=== PATIENT | male | born 1970 | race Caucasian/White ===

== ENCOUNTER 2023-10-31 05:34 | Inpatient (IN) | payer MEDICARE, OTHER ==
[~2023-10-31] VITALS: Ht 180.3 cm; Wt 117.9 kg
[2023-10-31] VITALS (8 sets, daily range): BP systolic 130–227; BP diastolic 77–123; PULSE 95–116; RESP 20; TEMP 97.9–98.6; O2SAT 96–98
[~2023-10-31 05:34] MED LIST: VENTOLIN HFA18 GM INH; WELLBUTRIN XL300 MG PO
[2023-10-31 06:09] LABS: BASOPHILS % 0.2 % (0.0-1.0); HEMATOCRIT 49.9 % (38.2-49.6); HEMOGLOBIN 16.6 g/dL (14.0-18.0); LYMPHOCYTES # (AUTO) 1.1 (1.0-3.2); LYMPHOCYTES % 26.8 % (18.0-39.1); MEAN CORPUSCULAR HEMOGLOBIN 31.6 pg (28-32); MEAN CORPUSCULAR HGB CONC 33.3 g/dL (31-35); MEAN CORPUSCULAR VOLUME 94.9 fL (81-99); MONOCYTES # (AUTO) 0.8 (0.2-0.8); NEUTROPHILS # (AUTO) 2.2 (2.1-6.9); NEUTROPHILS % 52.8 % (38.7-80.0); PLATELET COUNT 85 x10e3/uL (140-360); RED BLOOD COUNT 5.26 x10e6/uL (4.3-5.7); RED CELL DISTRIBUTION WIDTH 14.8 % (11.7-14.4)
[2023-10-31 06:27] LABS: ALBUMIN 3.4 g/dL (3.5-5.0); ALBUMIN/GLOBULIN RATIO 1.1 (0.8-2.0); CREATININE, SERUM 0.75 mg/dL (0.72-1.25); TOTAL PROTEIN 6.4 g/dL (6.5-8.1)
[2023-10-31 06:31] LABS: INR 0.97; PROTHROMBIN TIME 13.6 seconds (11.9-14.5)
[2023-10-31 06:32] LABS: TROPONIN I 0.127 ng/mL (0-0.300)
[2023-10-31 06:32] LABS: PARTIAL THROMBOPLASTIN TIME 27.7 seconds (23.8-35.5)
[2023-10-31 06:43] LABS: BILIRUBIN,TOTAL 0.5 mg/dL (0.2-1.2)
[2023-10-31] MEDS ORDERED: ONDANSETRON HCL INJ 2MG/ML 2ML 2 MG/ML VIAL IV PRN (09:00)
[2023-10-31] MEDS ORDERED: SODIUM CHLORIDE FLUSH 10 ML SYR INJ PRN (09:00)
[2023-10-31] MEDS: ASPIRIN 81 MG CHEW TAB PO ONE ×2 (09:42→11:05)
[2023-10-31] MEDS: CHLORDIAZEPOXIDE HCL 25 MG CAP PO ONE (09:43)
[2023-10-31] MEDS: NICOTINE 21 MG/EA PATCH TOP SCH (09:43)
[2023-10-31] MEDS ORDERED: ALBUTEROL/IPRATROPIUM 3 ML NEB NEB PRN (10:15)
[2023-10-31] MEDS: METHYLPREDNISOLONE SOD SUCC 40 MG/ML VIAL 1ML IV SCH (12:14)
[2023-10-31] MEDS ORDERED: REMDESIVIR 100MG 100 MG in SODIUM CHLORIDE 0.9% 100 ML IV SCH (13:00)
[2023-10-31] MEDS: ALBUTEROL/IPRATROPIUM 3 ML NEB NEB SCH (13:00)
[2023-10-31] MEDS: DOXYCYCLINE HYCLATE TABLET 100 MG TAB PO SCH (15:44)
[2023-10-31] MEDS: REMDESIVIR 100MG 100 MG in SODIUM CHLORIDE 0.9% 100 ML IV SCH (15:44)
[2023-10-31] MEDS: HYDRALAZINE HCL 20 MG/ML VIAL IV PRN (15:44)
[2023-10-31 16:22] LABS: TROPONIN I 0.119 ng/mL (0-0.300)
[2023-10-31] MEDS: BUDESONIDE/FORMOTEROL 160/4.5MCG INHALER INH SCH (19:00)
[2023-10-31] MEDS ORDERED: SPIRONOLACTONE25 MG PO (19:26)
[2023-10-31] MEDS ORDERED: CARVEDILOL12.5 MG PO (19:26)
[2023-10-31] MEDS: CHLORDIAZEPOXIDE HCL 25 MG CAP PO PRN (20:31)
[2023-10-31] MEDS: LORAZEPAM INJ 2 MG/ML VIAL IV PRN (20:33)
[2023-11-01] VITALS (11 sets, daily range): BP systolic 83–199; BP diastolic 67–87; PULSE 85–115; RESP 17–21; TEMP 97.3–98.3; O2SAT 95–98
[2023-11-01 05:34] LABS: BASOPHILS % 0.2 % (0.0-1.0); HEMATOCRIT 55.6 % (38.2-49.6); HEMOGLOBIN 18.7 g/dL (14.0-18.0); LYMPHOCYTES % 21.8 % (18.0-39.1); MEAN CORPUSCULAR HEMOGLOBIN 31.6 pg (28-32); MEAN CORPUSCULAR HGB CONC 33.6 g/dL (31-35); MEAN CORPUSCULAR VOLUME 93.9 fL (81-99); MONOCYTES # (AUTO) 0.8 (0.2-0.8); MONOCYTES % 17.6 % (4.4-11.3); NEUTROPHILS # (AUTO) 2.8 (2.1-6.9); NEUTROPHILS % 60.2 % (38.7-80.0); PLATELET COUNT 106 x10e3/uL (140-360); RED BLOOD COUNT 5.92 x10e6/uL (4.3-5.7); RED CELL DISTRIBUTION WIDTH 14.9 % (11.7-14.4); WHITE BLOOD COUNT 4.72 x10e3/uL (4.8-10.8)
[2023-11-01 06:04] LABS: ALBUMIN 3.7 g/dL (3.5-5.0); ALBUMIN/GLOBULIN RATIO 1.1 (0.8-2.0); BILIRUBIN,TOTAL 0.7 mg/dL (0.2-1.2); CALCIUM 9.2 mg/dL (8.4-10.2); CREATININE, SERUM 0.73 mg/dL (0.72-1.25); TOTAL PROTEIN 7.1 g/dL (6.5-8.1)
[2023-11-01 06:40] LABS: TROPONIN I 0.138 ng/mL (0-0.300)
[2023-11-01] MEDS: DEXAMETHASONE SOD PHOS 10 MG/1 ML VIAL IV SCH (09:01)
[2023-11-01] MEDS: REMDESIVIR 100MG 100 MG in SODIUM CHLORIDE 0.9% 100 ML IV SCH (14:29)
[2023-11-01] MEDS: ACETAMINOPHEN 325 MG TAB PO PRN (21:30)
[2023-11-02] VITALS (12 sets, daily range): BP systolic 136–156; BP diastolic 67–79; PULSE 91–102; RESP 17–20; TEMP 97.5–98.7; O2SAT 94–100
[2023-11-02 06:06] LABS: CALCIUM 9.8 mg/dL (8.4-10.2)
[2023-11-02 06:22] LABS: CREATININE, SERUM 0.83 mg/dL (0.72-1.25); POTASSIUM 3.8 mmol/L (3.5-5.1)
[2023-11-02 07:39] LABS: AMPHETAMINES SCREEN,URINE NEGATIVE (NEGATIVE); BENZODIAZEPINES SCREEN,URINE POSITIVE (NEGATIVE); CANNABINOIDS SCREEN,URINE NEGATIVE (NEGATIVE); METHADONE SCREEN, URINE NEGATIVE (NEGATIVE); OPIATES SCREEN,URINE NEGATIVE (NEGATIVE); PHENCYCLIDINE SCREEN,URINE NEGATIVE (NEGATIVE)
[2023-11-02 08:29] LABS: ANION GAP 18.9 mmol/L (8-16)
[2023-11-02] MEDS: TRAMADOL HCL 50 MG TAB PO PRN (11:21)
[2023-11-02] MEDS ORDERED: GUAIFENESIN/DEXTROMETHORPHAN LIQD 5 ML UDC NG PRN (13:15)
[2023-11-02] MEDS: BENZONATATE 100 MG CAP PO SCH (15:23)
[2023-11-03] VITALS (9 sets, daily range): BP systolic 149–168; BP diastolic 65–83; PULSE 82–98; RESP 18–20; TEMP 97.5–97.9; O2SAT 94–99
[2023-11-03] MEDS: ZOLPIDEM TARTRATE 5 MG TAB PO ONE (02:26)
[2023-11-03] MEDS: ZOLPIDEM TARTRATE 5 MG TAB ONE (02:28)
[2023-11-03] MEDS: METOPROLOL TARTRATE 25 MG TAB PO SCH (09:21)
[2023-11-03] MEDS ORDERED: ONDANSETRON HCL 4 MG ORAL DISINTEGRATING TAB PO PRN (11:00)
[2023-11-03] MEDS ORDERED: DOXYCYCLINE HY100 MG PO (14:55)
[2023-11-03] MEDS ORDERED: PREDNISONE20 MG PO (14:55)
[2023-11-03] MEDS ORDERED: VENTOLIN HFA18 GM INH (14:55)
[2023-11-03] MEDS ORDERED: BENZONATATE100 MG PO (14:55)
[2023-11-03] MEDS ORDERED: NICODERM CQ1 EAC2 TOP (14:55)
[2023-11-03] MEDS ORDERED: LORATADINE10 MG PO (14:55)
== END 2023-11-03 14:01 | disposition home or self-care (01) | DRG 177 ==
LOC: ER 05:40 → ERHOLD 09:00 → MED/SURG2 12:48 → OBSVTOIN 11-01 09:01
PROVIDERS: ADMIT Internal Medicine; ATTEND Internal Medicine
PROC: XW033E5 Introduction of Remdesivir Anti-infective into Peripheral Vein, Percutaneous Approach, New Technology Group 5 (ICD-10-PCS; principal; 2023-11-01)
PROC: HZ2ZZZZ Detoxification Services for Substance Abuse Treatment (ICD-10-PCS; 2023-11-02)
DX: U07.1 COVID-19 (principal); J12.82 Pneumonia due to coronavirus disease 2019; I11.0 Hypertensive heart disease with heart failure; I50.33 Acute on chronic diastolic (congestive) heart failure; J44.1 Chronic obstructive pulmonary disease with (acute) exacerbation; J44.0 Chronic obstructive pulmonary disease with (acute) lower respiratory infection; I27.20 Pulmonary hypertension, unspecified; Z99.81 Dependence on supplemental oxygen; F10.20 Alcohol dependence, uncomplicated; J44.89 Other specified chronic obstructive pulmonary disease; E66.01 Morbid (severe) obesity due to excess calories; G47.33 Obstructive sleep apnea (adult) (pediatric); M19.90 Unspecified osteoarthritis, unspecified site; I16.0 Hypertensive urgency; R00.0 Tachycardia, unspecified; Z68.36 Body mass index [BMI] 36.0-36.9, adult; S92.511A Displaced fracture of proximal phalanx of right lesser toe(s), initial encounter for closed fracture; S92.421A Displaced fracture of distal phalanx of right great toe, initial encounter for closed fracture; W22.09XA Striking against other stationary object, initial encounter; Z88.0 Allergy status to penicillin; F17.210 Nicotine dependence, cigarettes, uncomplicated
CPT/HCPCS: 36415; 71046; 71250; 80048; 80053; 80307; 80320; 82550; 83735; 83880; 84484; 85025; 85610; 85730; 93005; 93306; 94640; 94664; 94799; 99285; G0378; J0248; J0360; J0696; J1100; J2060; J2919; J7050; U0002

== ENCOUNTER 2024-02-03 03:08 | Inpatient (IN) | payer MEDICARE ==
[2024-02-03] VITALS (22 sets, daily range): BP systolic 114–178; BP diastolic 48–96; PULSE 79–109; RESP 15–24; TEMP 97.8–99.3; O2SAT 91–98
[~2024-02-03] VITALS: Ht 180.3 cm; Wt 117.9 kg
[~2024-02-03 03:08] MED LIST changes: +BENZONATATE100 MG PO; +CARVEDILOL12.5 MG PO; +DOXYCYCLINE HY100 MG PO; +LORATADINE10 MG PO; +NICODERM CQ1 EAC2 TOP; +PREDNISONE20 MG PO; +SPIRONOLACTONE25 MG PO
[2024-02-03] MEDS: ACETAMINOPHEN 325 MG TAB PO ONE (03:46)
[2024-02-03] MEDS: FUROSEMIDE INJ 10 MG/ML 4 ML VIAL IV ONE (03:53)
[2024-02-03 03:54] LABS: BASOPHILS % 0.2 % (0.0-1.0); EOSINOPHILS % 0.1 % (0.0-6.0); HEMATOCRIT 47.5 % (38.2-49.6); HEMOGLOBIN 15.5 g/dL (14.0-18.0); LYMPHOCYTES # (AUTO) 0.8 (1.0-3.2); LYMPHOCYTES % 10.3 % (18.0-39.1); MEAN CORPUSCULAR HGB CONC 32.6 g/dL (31-35); MONOCYTES # (AUTO) 1.3 (0.2-0.8); MONOCYTES % 15.7 % (4.4-11.3); NEUTROPHILS # (AUTO) 5.9 (2.1-6.9); NEUTROPHILS % 73.2 % (38.7-80.0); PLATELET COUNT 109 x10e3/uL (140-360); RED CELL DISTRIBUTION WIDTH 14.3 % (11.7-14.4); WHITE BLOOD COUNT 8.13 x10e3/uL (4.8-10.8)
[2024-02-03] MEDS ORDERED: FUROSEMIDE INJ 10 MG/ML 4 ML VIAL ONE (03:56)
[2024-02-03 04:36] LABS: ALBUMIN 3.5 g/dL (3.5-5.0); ALBUMIN/GLOBULIN RATIO 1.1 (0.8-2.0); ANION GAP 18.7 mmol/L (8-16); BILIRUBIN,TOTAL 1.2 mg/dL (0.2-1.2); CALCIUM 8.4 mg/dL (8.4-10.2); CREATININE, SERUM 1.13 mg/dL (0.72-1.25); TOTAL PROTEIN 6.6 g/dL (6.5-8.1)
[2024-02-03 04:38] LABS: POTASSIUM 5.7 mmol/L (3.5-5.1)
[2024-02-03 04:41] LABS: INFLUENZAE A&B ANTIGEN (RAPID) NEGATIVE (NEGATIVE); RESPIRATORY SYNC. VIRUS NEGATIVE (NEGATIVE)
[2024-02-03 04:54] LABS: AMPHETAMINES SCREEN,URINE NEGATIVE (NEGATIVE); BENZODIAZEPINES SCREEN,URINE NEGATIVE (NEGATIVE); CANNABINOIDS SCREEN,URINE NEGATIVE (NEGATIVE); METHADONE SCREEN, URINE NEGATIVE (NEGATIVE); OPIATES SCREEN,URINE NEGATIVE (NEGATIVE); PHENCYCLIDINE SCREEN,URINE NEGATIVE (NEGATIVE)
[2024-02-03 05:00] LABS: CLARITY,URINE CLEAR (CLEAR); COLOR,URINE YELLOW (YELLOW); LEUKOCYTE ESTERASE ,URINE NEGATIVE (NEGATIVE); NITRITE,URINE NEGATIVE (NEGATIVE); PH,URINE 6.5 (5 - 7)
[2024-02-03] MEDS ORDERED: SODIUM CHLORIDE FLUSH 10 ML SYR INJ PRN (05:00)
[2024-02-03 05:01] LABS: BACTERIA,URINE MANY /HPF; BILIRUBIN,URINE NEGATIVE (NEGATIVE); EPITHELIAL CELLS,URINE MODERATE /LPF; GLUCOSE, URINE NEGATIVE (NEGATIVE); KETONES,URINE NEGATIVE (NEGATIVE); PROTEIN,URINE DIPSTICK 2+ (NEGATIVE); URINE UROBILINOGEN 1 mg/dL (0.2 - 1); WBC,URINE (MAN) 0-5 /HPF (0-5)
[2024-02-03] MEDS: FUROSEMIDE INJ 10 MG/ML 2 ML VIAL IV SCH (05:18)
[2024-02-03] MEDS: IPRATROPIUM BROMIDE 0.02% 2.5 ML NEB NEB SCH (05:33)
[2024-02-03] MEDS: ALBUTEROL SULF 0.083% NEB SOLN 3 ML NEB NEB SCH (05:34)
[2024-02-03 06:35] LABS: ABG PH 7.22 (7.35-7.45)
[2024-02-03 06:36] LABS: ABG HCO3 28 mmol/L (22-26); ABG PCO2 70 mmHg (35-45); ABG PO2 82 mmHg (80-105); ABG TCO2 30
[2024-02-03 09:39] LABS: ANION GAP 20.1 mmol/L (8-16); CALCIUM 8.9 mg/dL (8.4-10.2); CREATININE, SERUM 1.11 mg/dL (0.72-1.25); POTASSIUM 5.1 mmol/L (3.5-5.1)
[2024-02-03 09:45] LABS: TROPONIN I 0.324 ng/mL (0-0.300)
[2024-02-03] MEDS ORDERED: ALBUTEROL/IPRATROPIUM 3 ML NEB NEB PRN (10:00)
[2024-02-03] MEDS ORDERED: LORAZEPAM INJ 2 MG/ML VIAL IV PRN (10:00)
[2024-02-03] MEDS: MUPIROCIN 2% OINT 22 GM TUBE TOP SCH (10:15)
[2024-02-03] MEDS: ALBUTEROL/IPRATROPIUM 3 ML NEB NEB SCH (10:36)
[2024-02-03] MEDS: METHYLPREDNISOLONE SOD SUCC 40 MG/ML VIAL 1ML IV SCH ×2 (10:39→20:25)
[2024-02-03] MEDS ORDERED: FUROSEMIDE INJ 10 MG/ML 4 ML VIAL IV SCH (12:00)
[2024-02-03] MEDS: FUROSEMIDE INJ 10 MG/ML 4 ML VIAL IV SCH (12:44)
[2024-02-03 13:52] LABS: ABG PCO2 64 mmHg (35-45); ABG PH 7.34 (7.35-7.45); ABG PO2 59 mmHg (80-105)
[2024-02-03 13:53] LABS: ABG HCO3 34 mmol/L (22-26); ABG TCO2 36
[2024-02-03] MEDS: ENOXAPARIN SOD INJ 40 MG/0.4 ML SYR SC SCH (17:10)
[2024-02-03] MEDS: CARVEDILOL 12.5 MG TAB PO SCH (17:11)
[2024-02-03 18:40] LABS: TROPONIN I 0.187 ng/mL (0-0.300)
[2024-02-03] MEDS: CELECOXIB 200 MG CAP PO SCH (20:25)
[2024-02-03] MEDS: HYDROCODONE/APAP 10MG-325MG TAB PO PRN (20:25)
[2024-02-03] MEDS ORDERED: MUPIROCIN 2% OINT 22 GM TUBE TOP SCH (22:00)
[2024-02-03] MEDS: Morphine 4mg INJECTION 4 MG/ML INJ IV PRN (23:32)
[2024-02-04] VITALS (29 sets, daily range): BP systolic 121–167; BP diastolic 41–115; PULSE 82–101; RESP 12–26; TEMP 98–98.8; O2SAT 85–97
[2024-02-04] MEDS: LORAZEPAM INJ 2 MG/ML VIAL IV PRN (02:39)
[2024-02-04 07:47] LABS: ALBUMIN 3.4 g/dL (3.5-5.0); ALBUMIN/GLOBULIN RATIO 1.1 (0.8-2.0); ANION GAP 15.8 mmol/L (8-16); BILIRUBIN,TOTAL 1.5 mg/dL (0.2-1.2); CREATININE, SERUM 0.85 mg/dL (0.72-1.25); POTASSIUM 4.8 mmol/L (3.5-5.1); TOTAL PROTEIN 6.4 g/dL (6.5-8.1)
[2024-02-04 07:50] LABS: BASOPHILS % 0.1 % (0.0-1.0); HEMATOCRIT 50.8 % (38.2-49.6); HEMOGLOBIN 16.3 g/dL (14.0-18.0); LYMPHOCYTES # (AUTO) 0.6 (1.0-3.2); LYMPHOCYTES % 5.4 % (18.0-39.1); MEAN CORPUSCULAR HEMOGLOBIN 30.5 pg (28-32); MEAN CORPUSCULAR HGB CONC 32.1 g/dL (31-35); MEAN CORPUSCULAR VOLUME 95.1 fL (81-99); MONOCYTES # (AUTO) 0.7 (0.2-0.8); MONOCYTES % 6.2 % (4.4-11.3); NEUTROPHILS # (AUTO) 9.4 (2.1-6.9); NEUTROPHILS % 87.9 % (38.7-80.0); PLATELET COUNT 89 x10e3/uL (140-360); RED BLOOD COUNT 5.34 x10e6/uL (4.3-5.7); RED CELL DISTRIBUTION WIDTH 14.2 % (11.7-14.4); WHITE BLOOD COUNT 10.74 x10e3/uL (4.8-10.8)
[2024-02-04 08:28] LABS: TROPONIN I 0.139 ng/mL (0-0.300)
[2024-02-04] MEDS: SACUBITRIL49MG/VALSARTAN51MG 1 EACH TABLET PO SCH (08:35)
[2024-02-04] MEDS: FUROSEMIDE INJ 10 MG/ML 4 ML VIAL IV SCH ×2 (08:53→16:49)
[2024-02-04] MEDS: NICOTINE 14 MG/EA PATCH TOP SCH (08:54)
[2024-02-04] MEDS ORDERED: FUROSEMIDE INJ 10 MG/ML 4 ML VIAL IV SCH ×2 (12:00→17:00)
[2024-02-05] VITALS (21 sets, daily range): BP systolic 104–165; BP diastolic 52–93; PULSE 85–95; RESP 12–22; TEMP 97.9–98.6; O2SAT 81–100
[2024-02-05 06:37] LABS: BASOPHILS % 0.1 % (0.0-1.0); EOSINOPHILS % 0.2 % (0.0-6.0); HEMATOCRIT 55.2 % (38.2-49.6); HEMOGLOBIN 17.6 g/dL (14.0-18.0); LYMPHOCYTES # (AUTO) 1.4 (1.0-3.2); LYMPHOCYTES % 9.9 % (18.0-39.1); MEAN CORPUSCULAR HEMOGLOBIN 30.2 pg (28-32); MEAN CORPUSCULAR HGB CONC 31.9 g/dL (31-35); MEAN CORPUSCULAR VOLUME 94.7 fL (81-99); MONOCYTES # (AUTO) 1.4 (0.2-0.8); MONOCYTES % 10.4 % (4.4-11.3); PLATELET COUNT 108 x10e3/uL (140-360); RED BLOOD COUNT 5.83 x10e6/uL (4.3-5.7); RED CELL DISTRIBUTION WIDTH 14.3 % (11.7-14.4); WHITE BLOOD COUNT 13.87 x10e3/uL (4.8-10.8)
[2024-02-05 07:04] LABS: ALBUMIN 3.1 g/dL (3.5-5.0); ALBUMIN/GLOBULIN RATIO 1.1 (0.8-2.0); ANION GAP 15.4 mmol/L (8-16); BILIRUBIN,TOTAL 1.6 mg/dL (0.2-1.2); CALCIUM 9.1 mg/dL (8.4-10.2); CREATININE, SERUM 0.84 mg/dL (0.72-1.25); POTASSIUM 4.4 mmol/L (3.5-5.1)
[2024-02-05] MEDS: CHLORDIAZEPOXIDE HCL 25 MG CAP PO SCH (10:13)
[2024-02-05] MEDS: GUAIFENESIN 600MG/DEXTROMETHORPHAN 30MG TABSR PO PRN (14:10)
[2024-02-06] VITALS (12 sets, daily range): BP systolic 110–142; BP diastolic 57–83; PULSE 73–105; RESP 18–20; TEMP 97–97.9; O2SAT 93–99
[2024-02-06 07:08] LABS: BASOPHILS % 0.1 % (0.0-1.0); EOSINOPHILS # (AUTO) 0.1 (0.0-0.4); HEMATOCRIT 53.5 % (38.2-49.6); LYMPHOCYTES # (AUTO) 1.7 (1.0-3.2); LYMPHOCYTES % 15.3 % (18.0-39.1); MEAN CORPUSCULAR HEMOGLOBIN 31.1 pg (28-32); MEAN CORPUSCULAR HGB CONC 31.8 g/dL (31-35); MEAN CORPUSCULAR VOLUME 97.8 fL (81-99); MONOCYTES # (AUTO) 1.5 (0.2-0.8); MONOCYTES % 13.7 % (4.4-11.3); NEUTROPHILS # (AUTO) 7.6 (2.1-6.9); NEUTROPHILS % 69.5 % (38.7-80.0); PLATELET COUNT 105 x10e3/uL (140-360); RED BLOOD COUNT 5.47 x10e6/uL (4.3-5.7); RED CELL DISTRIBUTION WIDTH 14.3 % (11.7-14.4); WHITE BLOOD COUNT 10.95 x10e3/uL (4.8-10.8)
[2024-02-06 07:32] LABS: ALBUMIN/GLOBULIN RATIO 1.2 (0.8-2.0); ANION GAP 16.9 mmol/L (8-16); BILIRUBIN,TOTAL 1.4 mg/dL (0.2-1.2); CALCIUM 8.4 mg/dL (8.4-10.2); CREATININE, SERUM 0.74 mg/dL (0.72-1.25); POTASSIUM 3.9 mmol/L (3.5-5.1); TOTAL PROTEIN 5.5 g/dL (6.5-8.1)
[2024-02-06] MEDS: FUROSEMIDE INJ 10 MG/ML 4 ML VIAL IV SCH (08:52)
[2024-02-06] MEDS: SACUBITRIL49MG/VALSARTAN51MG 1 EACH TABLET PO SCH (17:35)
[2024-02-07] VITALS (12 sets, daily range): BP systolic 102–134; BP diastolic 50–74; PULSE 63–92; RESP 16–20; TEMP 97–98.3; O2SAT 92–100
[2024-02-07] MEDS: FUROSEMIDE 40 MG TAB PO SCH (11:06)
[2024-02-08] VITALS (11 sets, daily range): BP systolic 105–157; BP diastolic 56–72; PULSE 75–90; RESP 18–22; TEMP 97.6–98.2; O2SAT 92–98
[2024-02-08 06:10] LABS: BASOPHILS % 0.1 % (0.0-1.0); EOSINOPHILS # (AUTO) 0.2 (0.0-0.4); EOSINOPHILS % 2.7 % (0.0-6.0); HEMATOCRIT 54.7 % (38.2-49.6); LYMPHOCYTES # (AUTO) 1.4 (1.0-3.2); LYMPHOCYTES % 18.6 % (18.0-39.1); MEAN CORPUSCULAR HEMOGLOBIN 30.7 pg (28-32); MEAN CORPUSCULAR HGB CONC 31.1 g/dL (31-35); MEAN CORPUSCULAR VOLUME 98.9 fL (81-99); MONOCYTES # (AUTO) 1.7 (0.2-0.8); NEUTROPHILS # (AUTO) 4.1 (2.1-6.9); NEUTROPHILS % 54.9 % (38.7-80.0); PLATELET COUNT 111 x10e3/uL (140-360); RED BLOOD COUNT 5.53 x10e6/uL (4.3-5.7); RED CELL DISTRIBUTION WIDTH 14.3 % (11.7-14.4); WHITE BLOOD COUNT 7.53 x10e3/uL (4.8-10.8)
[2024-02-08 06:47] LABS: ALBUMIN 3.1 g/dL (3.5-5.0); ANION GAP 38.7 mmol/L (8-16); BILIRUBIN,TOTAL 1.5 mg/dL (0.2-1.2); CALCIUM 8.8 mg/dL (8.4-10.2); CREATININE, SERUM 0.75 mg/dL (0.72-1.25); POTASSIUM 3.7 mmol/L (3.5-5.1); TOTAL PROTEIN 6.1 g/dL (6.5-8.1)
[2024-02-08] MEDS: ACETAMINOPHEN 325 MG TAB PO PRN (08:59)
[2024-02-08 09:38] LABS: EOSINOPHILS % (MANUAL) 5 % (0-7); LYMPHOCYTES % (MANUAL) 19 % (19-48); MONOCYTES % (MANUAL) 16 % (3.4-9.0); NEUTROPHILS % (MANUAL) 55 % (40-74); REACTIVE LYMPHOCYTES 5
[2024-02-08 09:39] LABS: PLATELET ESTIMATE SLIGHTLY DECREASED; PLATELET MORPHOLOGY COMMENT NORMAL; RBC MORPHOLOGY COMMENT NORMAL
[2024-02-08] MEDS: FUROSEMIDE INJ 10 MG/ML 4 ML VIAL IV SCH (12:29)
[2024-02-09] VITALS (19 sets, daily range): BP systolic 106–151; BP diastolic 50–77; PULSE 78–95; RESP 12–20; TEMP 97.5–98.2; O2SAT 90–99
[2024-02-09] MEDS: SODIUM CHLORIDE 0.9% 1000ML 1,000 ML IV SCH (00:16)
[2024-02-09 05:51] LABS: BASOPHILS % 0.4 % (0.0-1.0); EOSINOPHILS # (AUTO) 0.2 (0.0-0.4); EOSINOPHILS % 2.7 % (0.0-6.0); HEMATOCRIT 52.5 % (38.2-49.6); HEMOGLOBIN 16.4 g/dL (14.0-18.0); LYMPHOCYTES # (AUTO) 1.4 (1.0-3.2); LYMPHOCYTES % 18.3 % (18.0-39.1); MEAN CORPUSCULAR HEMOGLOBIN 30.5 pg (28-32); MEAN CORPUSCULAR HGB CONC 31.2 g/dL (31-35); MEAN CORPUSCULAR VOLUME 97.8 fL (81-99); MONOCYTES # (AUTO) 1.7 (0.2-0.8); MONOCYTES % 22.5 % (4.4-11.3); NEUTROPHILS # (AUTO) 4.1 (2.1-6.9); NEUTROPHILS % 55.7 % (38.7-80.0); PLATELET COUNT 109 x10e3/uL (140-360); RED BLOOD COUNT 5.37 x10e6/uL (4.3-5.7); RED CELL DISTRIBUTION WIDTH 14.6 % (11.7-14.4); WHITE BLOOD COUNT 7.38 x10e3/uL (4.8-10.8)
[2024-02-09 06:24] LABS: ALBUMIN 3.2 g/dL (3.5-5.0); ALBUMIN/GLOBULIN RATIO 1.2 (0.8-2.0); ANION GAP 12.9 mmol/L (8-16); BILIRUBIN,TOTAL 1.4 mg/dL (0.2-1.2); CALCIUM 9.3 mg/dL (8.4-10.2); CREATININE, SERUM 0.69 mg/dL (0.72-1.25); POTASSIUM 3.9 mmol/L (3.5-5.1); TOTAL PROTEIN 5.9 g/dL (6.5-8.1)
[2024-02-09 06:48] LABS: INR 1.01; PROTHROMBIN TIME 13.8 seconds (11.9-14.5)
[2024-02-09 06:49] LABS: PARTIAL THROMBOPLASTIN TIME 27.3 seconds (23.8-35.5)
[2024-02-09 10:17] LABS: BAND NEUTROPHILS % (MANUAL) 1 %; BASOPHILS % (MANUAL) 1 % (0-1.5); EOSINOPHILS % (MANUAL) 1 % (0-7); LYMPHOCYTES % (MANUAL) 22 % (19-48); MONOCYTES % (MANUAL) 18 % (3.4-9.0); NEUTROPHILS % (MANUAL) 53 % (40-74); REACTIVE LYMPHOCYTES 4
[2024-02-09] MEDS: MIDAZOLAM HCL 2 MG/2 ML VIAL ONE (17:08)
[2024-02-09] MEDS: FENTANYL CITRATE/PF 100MCG/2 ML INJ ONE (17:08)
[2024-02-09] MEDS: VERAPAMIL HCL 2.5 MG/ML 2 ML VIAL ONE (17:09)
[2024-02-09] MEDS: SODIUM CHLORIDE 0.9% 1000ML 1,000 ML ONE (17:09)
[2024-02-09] MEDS: NITROGLYCERIN/D5W 200 MCG/ML 250 ML ONE (17:09)
[2024-02-09] MEDS: IOPAMIDOL 370 MG/ML 100 ML INFUS..BTL INJ ONE (17:09)
[2024-02-09] MEDS: LIDOCAINE HCL 2% LOCAL 20 ML VIAL ONE (17:09)
[2024-02-09] MEDS: HEPARIN SOD/SOD CHLORIDE 2,000 ML ONE (17:10)
[2024-02-09] MEDS: HEPARIN SOD (PORCINE) 1000 UNIT/ML 30ML ONE (17:10)
[2024-02-10] VITALS (11 sets, daily range): BP systolic 94–148; BP diastolic 58–84; PULSE 73–91; RESP 16–20; TEMP 97.3–98.1; O2SAT 93–97
[2024-02-10] MEDS: THIAMINE HCL 100 MG TAB PO SCH (11:37)
[2024-02-10] MEDS: CARVEDILOL 12.5 MG TAB PO SCH (11:37)
[2024-02-10] MEDS: FOLIC ACID 1 MG TAB PO SCH (11:37)
[2024-02-11] VITALS (8 sets, daily range): BP systolic 103–123; BP diastolic 54–73; PULSE 76–90; RESP 16–22; TEMP 97–98.1; O2SAT 94–99
[2024-02-11] MEDS ORDERED: MELATONIN 3 MG TAB PO PRN (00:15)
[2024-02-11] MEDS ORDERED: B-1100 MG PO (14:03)
[2024-02-11] MEDS ORDERED: NICODERM CQ1 EAC1 TOP (14:03)
[2024-02-11] MEDS ORDERED: FUROSEMIDE40 MG PO (14:03)
[2024-02-11] MEDS ORDERED: Folic Acid PO (14:03)
[2024-02-11] MEDS ORDERED: ATORVASTATIN CA20 MG PO (14:03)
[2024-02-11] MEDS ORDERED: COREG12.5 MG PO (14:03)
[2024-02-11] MEDS ORDERED: PANTOPRAZOLE SO40 MG PO (14:03)
[2024-02-11] MEDS ORDERED: ECOTRIN81 MG PO (14:07)
== END 2024-02-11 15:30 | disposition home or self-care (01) | DRG 286 ==
LOC: ER 03:15 → ERHOLD 04:49 → ICU 07:55 → MED/SURG2 02-05 21:10
PROVIDERS: ADMIT Internal Medicine; ATTEND Internal Medicine
PROC: 4A033R1 Measurement of Arterial Saturation, Peripheral, Percutaneous Approach (ICD-10-PCS; principal; 2024-02-03)
PROC: 4A033R1 Measurement of Arterial Saturation, Peripheral, Percutaneous Approach (ICD-10-PCS; 2024-02-03)
PROC: 5A09357 Assistance with Respiratory Ventilation, Less than 24 Consecutive Hours, Continuous Positive Airway Pressure (ICD-10-PCS; 2024-02-03)
PROC: 02HV33Z Insertion of Infusion Device into Superior Vena Cava, Percutaneous Approach (ICD-10-PCS; 2024-02-03)
PROC: B548ZZA Ultrasonography of Superior Vena Cava, Guidance (ICD-10-PCS; 2024-02-03)
PROC: 4A023N7 Measurement of Cardiac Sampling and Pressure, Left Heart, Percutaneous Approach (ICD-10-PCS; 2024-02-09)
PROC: B2111ZZ Fluoroscopy of Multiple Coronary Arteries using Low Osmolar Contrast (ICD-10-PCS; 2024-02-09)
PROC: B2151ZZ Fluoroscopy of Left Heart using Low Osmolar Contrast (ICD-10-PCS; 2024-02-09)
DX: I11.0 Hypertensive heart disease with heart failure (principal); G93.41 Metabolic encephalopathy; J18.9 Pneumonia, unspecified organism; I50.23 Acute on chronic systolic (congestive) heart failure; J96.01 Acute respiratory failure with hypoxia; J96.02 Acute respiratory failure with hypercapnia; J44.1 Chronic obstructive pulmonary disease with (acute) exacerbation; J44.0 Chronic obstructive pulmonary disease with (acute) lower respiratory infection; E87.20 Acidosis, unspecified; I47.29 Other ventricular tachycardia; N39.0 Urinary tract infection, site not specified; I42.0 Dilated cardiomyopathy; I42.8 Other cardiomyopathies; I25.110 Atherosclerotic heart disease of native coronary artery with unstable angina pectoris; E66.01 Morbid (severe) obesity due to excess calories; Z71.3 Dietary counseling and surveillance; Z68.36 Body mass index [BMI] 36.0-36.9, adult; F17.200 Nicotine dependence, unspecified, uncomplicated; Z99.81 Dependence on supplemental oxygen; G47.33 Obstructive sleep apnea (adult) (pediatric); F10.120 Alcohol abuse with intoxication, uncomplicated; Y90.2 Blood alcohol level of 40-59 mg/100 ml; K70.9 Alcoholic liver disease, unspecified; I49.3 Ventricular premature depolarization; I27.20 Pulmonary hypertension, unspecified; D69.6 Thrombocytopenia, unspecified; R74.01 Elevation of levels of liver transaminase levels; M54.50 Low back pain, unspecified; M19.91 Primary osteoarthritis, unspecified site; G89.29 Other chronic pain; Z11.52 Encounter for screening for COVID-19; Z86.16 Personal history of COVID-19; Z91.148 Patient's other noncompliance with medication regimen for other reason
CPT/HCPCS: 36415; 36569; 36600; 71045; 76937; 80048; 80053; 80307; 80320; 81001; 82550; 82805; 83605; 83735; 83880; 84484; 85025; 85610; 85730; 87040; 87086; 87400; 87420; 93005; 93306; 93458; 94660; 94760; 94799; 99152; 99284; C1887; J0692; J0696; J1644; J1650; J1940; J2003; J2060; J2250; J2270; J2470; J2919; J3411; J7030; J7050; Q9967; U0002

== ENCOUNTER 2024-05-12 19:49 | Inpatient (IN) | payer MEDICARE ==
[~2024-05-12] VITALS: Ht 180.3 cm; Wt 115.7 kg
[~2024-05-12 19:49] MED LIST changes: +ATORVASTATIN CA20 MG PO; +B-1100 MG PO; +COREG12.5 MG PO; +ECOTRIN81 MG PO; +FUROSEMIDE40 MG PO; +Folic Acid PO; +NICODERM CQ1 EAC1 TOP; +PANTOPRAZOLE SO40 MG PO
[2024-05-12 19:55] VITALS: TEMP 98.7
[2024-05-12 20:23] VITALS: PULSE 99; RESP 22; O2SAT 95
[2024-05-12] MEDS: IPRATROPIUM BROMIDE 0.02% 2.5 ML NEB NEB ONE (20:27)
[2024-05-12] MEDS: ALBUTEROL SULF 0.083% NEB SOLN 3 ML NEB NEB STA (20:28)
[2024-05-12 20:53] LABS: BASOPHILS % 0.1 % (0.0-1.0); EOSINOPHILS % 0.1 % (0.0-6.0); HEMATOCRIT 48.7 % (38.2-49.6); LYMPHOCYTES # (AUTO) 0.8 (1.0-3.2); LYMPHOCYTES % 9.4 % (18.0-39.1); MEAN CORPUSCULAR HGB CONC 30.8 g/dL (31-35); MEAN CORPUSCULAR VOLUME 94.2 fL (81-99); MONOCYTES # (AUTO) 0.9 (0.2-0.8); MONOCYTES % 10.6 % (4.4-11.3); NEUTROPHILS # (AUTO) 6.8 (2.1-6.9); NEUTROPHILS % 79.4 % (38.7-80.0); PLATELET COUNT 181 x10e3/uL (140-360); RED BLOOD COUNT 5.17 x10e6/uL (4.3-5.7); RED CELL DISTRIBUTION WIDTH 14.8 % (11.7-14.4)
[2024-05-12] MEDS: METHYLPREDNISOLONE SOD SUCC 125 MG/2ML VIAL IV ONE (20:54)
[2024-05-12 21:17] LABS: CALCIUM 8.6 mg/dL (8.4-10.2); CREATININE, SERUM 0.74 mg/dL (0.72-1.25)
[2024-05-12 21:21] LABS: CORONAVIRUS COVID-19 AG NEGATIVE (NEGATIVE); INFLUENZA A AG NEGATIVE (NEGATIVE); INFLUENZA B AG NEGATIVE (NEGATIVE)
[2024-05-12 21:31] LABS: ALBUMIN 3.6 g/dL (3.5-5.0); ALBUMIN/GLOBULIN RATIO 1.1 (0.8-2.0); ANION GAP 17.6 mmol/L (8-16); TOTAL PROTEIN 6.9 g/dL (6.5-8.1)
[2024-05-12 21:33] LABS: POTASSIUM 5.6 mmol/L (3.5-5.1)
[2024-05-12 22:27] LABS: ALBUMIN 3.6 g/dL (3.5-5.0); ALBUMIN/GLOBULIN RATIO 1.1 (0.8-2.0); ANION GAP 17.8 mmol/L (8-16); BILIRUBIN,TOTAL 1.4 mg/dL (0.2-1.2); CALCIUM 8.5 mg/dL (8.4-10.2); CREATININE, SERUM 0.69 mg/dL (0.72-1.25); TOTAL PROTEIN 6.8 g/dL (6.5-8.1)
[2024-05-12 22:31] LABS: POTASSIUM 5.8 mmol/L (3.5-5.1)
[2024-05-12] MEDS ORDERED: SODIUM CHLORIDE FLUSH 10 ML SYR INJ PRN (23:00)
[2024-05-12] MEDS: FUROSEMIDE INJ 10 MG/ML 4 ML VIAL IV ONE (23:22)
[2024-05-12 23:30] VITALS: PULSE 104; RESP 30
[2024-05-12 23:58] VITALS: BP 160/72; PULSE 101; RESP 23; TEMP 98.5; O2SAT 95
[2024-05-13] VITALS (27 sets, daily range): BP systolic 103–172; BP diastolic 50–98; PULSE 73–120; RESP 13–30; TEMP 98–98.5; O2SAT 90–100
[2024-05-13] MEDS: METHYLPREDNISOLONE SOD SUCC 40 MG/ML VIAL 1ML IV SCH ×2 (01:42→20:23)
[2024-05-13] MEDS: ALBUTEROL/IPRATROPIUM 3 ML NEB NEB SCH (02:21)
[2024-05-13] MEDS: ACETAMINOPHEN/CODEINE 300MG - 30MG TAB PO ONE (02:39)
[2024-05-13] MEDS: ONDANSETRON HCL INJ 2MG/ML 2ML 2 MG/ML VIAL IV PRN (05:51)
[2024-05-13] MEDS: LORAZEPAM INJ 2 MG/ML VIAL IV PRN (05:52)
[2024-05-13 06:57] LABS: EOSINOPHILS # (AUTO) 0.4 (0.0-0.4); EOSINOPHILS % 4.1 % (0.0-6.0); HEMOGLOBIN 15.4 g/dL (14.0-18.0); LYMPHOCYTES # (AUTO) 0.2 (1.0-3.2); LYMPHOCYTES % 2.3 % (18.0-39.1); MEAN CORPUSCULAR HGB CONC 30.8 g/dL (31-35); MEAN CORPUSCULAR VOLUME 94.2 fL (81-99); MONOCYTES # (AUTO) 0.2 (0.2-0.8); MONOCYTES % 2.3 % (4.4-11.3); NEUTROPHILS # (AUTO) 9.1 (2.1-6.9); NEUTROPHILS % 90.9 % (38.7-80.0); PLATELET COUNT 165 x10e3/uL (140-360); RED BLOOD COUNT 5.31 x10e6/uL (4.3-5.7); RED CELL DISTRIBUTION WIDTH 15.2 % (11.7-14.4); WHITE BLOOD COUNT 10.05 x10e3/uL (4.8-10.8)
[2024-05-13 07:34] LABS: TROPONIN I 0.114 ng/mL (0-0.300)
[2024-05-13] MEDS: DEXMEDETOMIDINE 400MCG/NS100ML 100 ML IV PRN (07:41)
[2024-05-13 07:42] LABS: ALBUMIN 3.5 g/dL (3.5-5.0); ANION GAP 18.1 mmol/L (8-16); BILIRUBIN,TOTAL 1.6 mg/dL (0.2-1.2); CALCIUM 9.1 mg/dL (8.4-10.2); CREATININE, SERUM 0.71 mg/dL (0.72-1.25); POTASSIUM 5.1 mmol/L (3.5-5.1); TOTAL PROTEIN 6.9 g/dL (6.5-8.1)
[2024-05-13] MEDS: CARVEDILOL 12.5 MG TAB PO SCH (08:32)
[2024-05-13] MEDS: PANTOPRAZOLE SOD 40 MG TABEC PO SCH (08:46)
[2024-05-13] MEDS: FUROSEMIDE INJ 10 MG/ML 4 ML VIAL IV SCH (08:46)
[2024-05-13 09:48] LABS: ABG PH 7.29 (7.35-7.45)
[2024-05-13 09:49] LABS: ABG HCO3 36 mmol/L (22-26); ABG PCO2 75 mmHg (35-45); ABG PO2 85 mmHg (80-105); ABG TCO2 38
[2024-05-13 11:33] LABS: LYMPHOCYTES % (MANUAL) 2 % (19-48); MONOCYTES % (MANUAL) 1 % (3.4-9.0); NEUTROPHILS % (MANUAL) 95 % (40-74); REACTIVE LYMPHOCYTES 2
[2024-05-13 11:34] LABS: PLATELET ESTIMATE ADEQUATE; PLATELET MORPHOLOGY COMMENT NORMAL; RBC MORPHOLOGY COMMENT NORMAL
[2024-05-13 14:42] LABS: ABG HCO3 37 mmol/L (22-26); ABG PCO2 60 mmHg (35-45); ABG PO2 84 mmHg (80-105); ABG TCO2 38
[2024-05-13 15:52] LABS: TROPONIN I 0.123 ng/mL (0-0.300)
[2024-05-13] MEDS: ENOXAPARIN SOD INJ 40 MG/0.4 ML SYR SC SCH (16:29)
[2024-05-13] MEDS: MAGNESIUM SULF 1GRAM/DEXTROSE 100 ML IV ONE (18:32)
[2024-05-13] MEDS: ATORVASTATIN 20 MG TAB PO SCH (20:23)
[2024-05-14] VITALS (23 sets, daily range): BP systolic 107–160; BP diastolic 53–144; PULSE 70–87; RESP 14–27; TEMP 97.8–98.5; O2SAT 87–100
[2024-05-14 07:09] LABS: BASOPHILS % 0.1 % (0.0-1.0); HEMATOCRIT 47.6 % (38.2-49.6); HEMOGLOBIN 15.1 g/dL (14.0-18.0); LYMPHOCYTES # (AUTO) 0.5 (1.0-3.2); LYMPHOCYTES % 4.8 % (18.0-39.1); MEAN CORPUSCULAR HEMOGLOBIN 29.8 pg (28-32); MEAN CORPUSCULAR HGB CONC 31.7 g/dL (31-35); MEAN CORPUSCULAR VOLUME 94.1 fL (81-99); MONOCYTES # (AUTO) 0.5 (0.2-0.8); MONOCYTES % 5.7 % (4.4-11.3); NEUTROPHILS # (AUTO) 8.4 (2.1-6.9); NEUTROPHILS % 88.5 % (38.7-80.0); PLATELET COUNT 148 x10e3/uL (140-360); RED BLOOD COUNT 5.06 x10e6/uL (4.3-5.7); RED CELL DISTRIBUTION WIDTH 15.7 % (11.7-14.4)
[2024-05-14] MEDS: METHYLPREDNISOLONE SOD SUCC 40 MG/ML VIAL 1ML IV SCH (07:34)
[2024-05-14] MEDS: FUROSEMIDE INJ 10 MG/ML 4 ML VIAL IV SCH (07:35)
[2024-05-14 07:38] LABS: ALBUMIN 3.1 g/dL (3.5-5.0); ANION GAP 16.4 mmol/L (8-16); CALCIUM 9.1 mg/dL (8.4-10.2); CREATININE, SERUM 0.76 mg/dL (0.72-1.25); MAGNESIUM 2.1 MG/DL (1.3-2.1); TOTAL PROTEIN 6.2 g/dL (6.5-8.1)
[2024-05-14 07:40] LABS: POTASSIUM 5.4 mmol/L (3.5-5.1)
[2024-05-14 07:59] LABS: MAGNESIUM 2.1 MG/DL (1.3-2.1); PHOSPHORUS 2.2 MG/DL (2.3-4.7)
[2024-05-14 08:09] LABS: FOLATE 6.5 ng/mL (7.0-15.4)
[2024-05-14 08:20] LABS: THYROID STIMULATING HORMONE 3.363 uIU/mL (0.350-4.940)
[2024-05-14] MEDS: ACETAMINOPHEN 1000 MG/100 ML IV PRN (20:38)
[2024-05-15] VITALS (14 sets, daily range): BP systolic 115–162; BP diastolic 68–110; PULSE 40–98; RESP 11–22; TEMP 98.3–98.5; O2SAT 56–100
[2024-05-15 06:37] LABS: EOSINOPHILS % 0.4 % (0.0-6.0); HEMATOCRIT 47.8 % (38.2-49.6); HEMOGLOBIN 14.6 g/dL (14.0-18.0); LYMPHOCYTES # (AUTO) 1.6 (1.0-3.2); LYMPHOCYTES % 19.4 % (18.0-39.1); MEAN CORPUSCULAR HEMOGLOBIN 29.3 pg (28-32); MEAN CORPUSCULAR HGB CONC 30.5 g/dL (31-35); MONOCYTES # (AUTO) 0.7 (0.2-0.8); MONOCYTES % 8.5 % (4.4-11.3); NEUTROPHILS # (AUTO) 5.9 (2.1-6.9); NEUTROPHILS % 71.5 % (38.7-80.0); PLATELET COUNT 117 x10e3/uL (140-360); RED BLOOD COUNT 4.98 x10e6/uL (4.3-5.7); RED CELL DISTRIBUTION WIDTH 16.1 % (11.7-14.4)
[2024-05-15 07:33] LABS: ANION GAP 12.5 mmol/L (8-16); CREATININE, SERUM 0.8 mg/dL (0.72-1.25); POTASSIUM 4.5 mmol/L (3.5-5.1); TOTAL PROTEIN 5.9 g/dL (6.5-8.1)
[2024-05-15 08:48] LABS: ABG HCO3 37 mmol/L (22-26); ABG PCO2 60 mmHg (35-45); ABG PO2 84 mmHg (80-105); ABG TCO2 38
[2024-05-15 08:49] LABS: ABG HCO3 36 mmol/L (22-26); ABG PCO2 75 mmHg (35-45); ABG PH 7.29 (7.35-7.45); ABG PO2 85 mmHg (80-105); ABG TCO2 38
[2024-05-15] MEDS ORDERED: FUROSEMIDE 40 MG TAB PO SCH (09:00)
[2024-05-15] MEDS: LORAZEPAM 0.5 MG TAB PO PRN (23:43)
[2024-05-16] VITALS (10 sets, daily range): BP systolic 146–172; BP diastolic 66–88; PULSE 88–105; RESP 13–23; TEMP 98.6–99.3; O2SAT 92–99
[2024-05-16] MEDS: HYDRALAZINE HCL 20 MG/ML VIAL IV PRN (03:46)
[2024-05-16 06:54] LABS: BASOPHILS % 0.2 % (0.0-1.0); EOSINOPHILS # (AUTO) 0.1 (0.0-0.4); EOSINOPHILS % 0.7 % (0.0-6.0); HEMATOCRIT 46.8 % (38.2-49.6); HEMOGLOBIN 15.3 g/dL (14.0-18.0); LYMPHOCYTES % 16.4 % (18.0-39.1); MEAN CORPUSCULAR HEMOGLOBIN 29.7 pg (28-32); MEAN CORPUSCULAR HGB CONC 32.7 g/dL (31-35); MONOCYTES # (AUTO) 1.2 (0.2-0.8); NEUTROPHILS # (AUTO) 8.8 (2.1-6.9); NEUTROPHILS % 72.2 % (38.7-80.0); PLATELET COUNT 138 x10e3/uL (140-360); RED BLOOD COUNT 5.15 x10e6/uL (4.3-5.7); RED CELL DISTRIBUTION WIDTH 16.1 % (11.7-14.4)
[2024-05-16 06:59] LABS: MEAN CORPUSCULAR VOLUME 90.9 fL (81-99)
[2024-05-16 07:32] LABS: ALBUMIN 3.4 g/dL (3.5-5.0); ALBUMIN/GLOBULIN RATIO 1.3 (0.8-2.0); ANION GAP 15.9 mmol/L (8-16); CALCIUM 8.8 mg/dL (8.4-10.2); CREATININE, SERUM 0.74 mg/dL (0.72-1.25); POTASSIUM 3.9 mmol/L (3.5-5.1)
[2024-05-16] MEDS: FUROSEMIDE 40 MG TAB PO SCH (08:40)
[2024-05-16] MEDS: PREDNISONE 20 MG TAB PO SCH (08:44)
== END 2024-05-16 10:24 | disposition home or self-care (01) | DRG 291 ==
LOC: ER 19:52 → ERHOLD 22:48 → ICU 23:58
PROVIDERS: ADMIT Internal Medicine; ATTEND Internal Medicine
PROC: 5A09357 Assistance with Respiratory Ventilation, Less than 24 Consecutive Hours, Continuous Positive Airway Pressure (ICD-10-PCS; 2024-05-12)
PROC: 4A133R1 Monitoring of Arterial Saturation, Peripheral, Percutaneous Approach (ICD-10-PCS; principal; 2024-05-13)
PROC: HZ2ZZZZ Detoxification Services for Substance Abuse Treatment (ICD-10-PCS; 2024-05-13)
DX: I11.0 Hypertensive heart disease with heart failure (principal); G93.41 Metabolic encephalopathy; I50.23 Acute on chronic systolic (congestive) heart failure; J96.22 Acute and chronic respiratory failure with hypercapnia; J96.21 Acute and chronic respiratory failure with hypoxia; J18.9 Pneumonia, unspecified organism; E87.1 Hypo-osmolality and hyponatremia; J44.1 Chronic obstructive pulmonary disease with (acute) exacerbation; N17.9 Acute kidney failure, unspecified; E87.20 Acidosis, unspecified; D69.6 Thrombocytopenia, unspecified; E86.0 Dehydration; J43.9 Emphysema, unspecified; E78.5 Hyperlipidemia, unspecified; E87.5 Hyperkalemia; G47.33 Obstructive sleep apnea (adult) (pediatric); F10.20 Alcohol dependence, uncomplicated; M54.9 Dorsalgia, unspecified; Z11.52 Encounter for screening for COVID-19; E66.01 Morbid (severe) obesity due to excess calories; Z68.35 Body mass index [BMI] 35.0-35.9, adult; Z79.82 Long term (current) use of aspirin; Z88.0 Allergy status to penicillin; Z88.8 Allergy status to other drugs, medicaments and biological substances; F17.200 Nicotine dependence, unspecified, uncomplicated
CPT/HCPCS: 36415; 36569; 36600; 71045; 80053; 80320; 82550; 82607; 82746; 82805; 82948; 83735; 83880; 84100; 84443; 84484; 85025; 93005; 94640; 94660; 94799; 99252; 99285; J0360; J0692; J0696; J1650; J1940; J2060; J2405; J2470; J2919; J3475; J7512

== ENCOUNTER 2024-06-04 06:37 | Inpatient (IN) | payer MEDICARE ==
[2024-06-04] VITALS (12 sets, daily range): BP systolic 125–162; BP diastolic 63–89; PULSE 74–101; RESP 15–22; TEMP 97.1–99.5; O2SAT 94–99
[~2024-06-04] VITALS: Ht 180.3 cm; Wt 111.6 kg
[2024-06-04 07:04] LABS: BASOPHILS % 0.7 % (0.0-1.0); EOSINOPHILS # (AUTO) 0.2 (0.0-0.4); EOSINOPHILS % 3.1 % (0.0-6.0); HEMATOCRIT 47.7 % (38.2-49.6); HEMOGLOBIN 15.6 g/dL (14.0-18.0); LYMPHOCYTES # (AUTO) 1.9 (1.0-3.2); LYMPHOCYTES % 32.3 % (18.0-39.1); MEAN CORPUSCULAR HEMOGLOBIN 28.8 pg (28-32); MEAN CORPUSCULAR HGB CONC 32.7 g/dL (31-35); MEAN CORPUSCULAR VOLUME 88.2 fL (81-99); MONOCYTES # (AUTO) 0.8 (0.2-0.8); MONOCYTES % 13.2 % (4.4-11.3); NEUTROPHILS # (AUTO) 2.9 (2.1-6.9); NEUTROPHILS % 50.4 % (38.7-80.0); PLATELET COUNT 247 x10e3/uL (140-360); RED BLOOD COUNT 5.41 x10e6/uL (4.3-5.7); RED CELL DISTRIBUTION WIDTH 15.3 % (11.7-14.4); WHITE BLOOD COUNT 5.82 x10e3/uL (4.8-10.8)
[2024-06-04] MEDS ORDERED: SODIUM CHLORIDE 0.9% 500ML 500 ML ONE (07:10)
[2024-06-04] MEDS: SODIUM CHLORIDE 0.9% 500ML 500 ML IV ONE (07:14)
[2024-06-04 07:28] LABS: INR 1.08; PROTHROMBIN TIME 14.7 seconds (11.9-14.5)
[2024-06-04 07:29] LABS: PARTIAL THROMBOPLASTIN TIME 28.1 seconds (23.8-35.5)
[2024-06-04] MEDS: METHYLPREDNISOLONE SOD SUCC 125 MG/2ML VIAL IV STA (07:29)
[2024-06-04 07:37] LABS: ALBUMIN 3.2 g/dL (3.5-5.0); ALBUMIN/GLOBULIN RATIO 1.1 (0.8-2.0); ANION GAP 17.8 mmol/L (8-16); BILIRUBIN,TOTAL 0.6 mg/dL (0.2-1.2); CALCIUM 8.4 mg/dL (8.4-10.2); CREATININE, SERUM 0.87 mg/dL (0.72-1.25); MAGNESIUM 1.7 MG/DL (1.3-2.1); POTASSIUM 3.8 mmol/L (3.5-5.1); TOTAL PROTEIN 6.2 g/dL (6.5-8.1)
[2024-06-04 07:43] LABS: TROPONIN I 0.112 ng/mL (0-0.300)
[2024-06-04 07:47] LABS: CORONAVIRUS COVID-19 AG NEGATIVE (NEGATIVE); INFLUENZA A AG NEGATIVE (NEGATIVE); INFLUENZA B AG NEGATIVE (NEGATIVE)
[2024-06-04 07:47] LABS: ETHANOL 155.4 mg/dL (0.0-10.0)
[2024-06-04 07:51] LABS: SALICYLATE < 5.0 mg/dL (0-30)
[2024-06-04 07:56] LABS: ABG HCO3 31 mmol/L (22-26); ABG PCO2 58 mmHg (35-45); ABG PH 7.33 (7.35-7.45); ABG PO2 76 mmHg (80-105); ABG TCO2 32
[2024-06-04] MEDS: ALBUTEROL/IPRATROPIUM 3 ML NEB NEB ONE (08:05)
[2024-06-04] MEDS: ALBUTEROL/IPRATROPIUM 3 ML NEB NEB SCH (10:20)
[2024-06-04] MEDS ORDERED: ACETAMINOPHEN 325 MG TAB PO PRN (10:30)
[2024-06-04] MEDS ORDERED: HYDRALAZINE HCL 20 MG/ML VIAL IV PRN (10:30)
[2024-06-04] MEDS ORDERED: ONDANSETRON HCL INJ 2MG/ML 2ML 2 MG/ML VIAL IV PRN (10:30)
[2024-06-04] MEDS: FUROSEMIDE INJ 10 MG/ML 4 ML VIAL IV SCH (13:20)
[2024-06-04] MEDS: POTASSIUM CHLORIDE 10MEQ EA PO SCH (13:20)
[2024-06-04] MEDS: NICOTINE 14 MG/EA PATCH TOP SCH (13:21)
[2024-06-04] MEDS: LORAZEPAM 0.5 MG TAB PO PRN (13:37)
[2024-06-04] MEDS: TRAMADOL HCL 50 MG TAB PO PRN (13:38)
[2024-06-04 14:13] LABS: TROPONIN I 0.07 ng/mL (0-0.300)
[2024-06-04] MEDS: BENZONATATE 100 MG CAP PO SCH (15:15)
[2024-06-04] MEDS: CHLORDIAZEPOXIDE HCL 10 MG CAP PO SCH (19:21)
[2024-06-04] MEDS: CARVEDILOL 12.5 MG TAB PO SCH (19:22)
[2024-06-04] MEDS: LORAZEPAM INJ 2 MG/ML VIAL IV PRN (19:29)
[2024-06-04 20:31] LABS: AMPHETAMINES SCREEN,URINE NEGATIVE (NEGATIVE); BENZODIAZEPINES SCREEN,URINE NEGATIVE (NEGATIVE); CANNABINOIDS SCREEN,URINE NEGATIVE (NEGATIVE); COCAINE SCREEN,URINE NEGATIVE (NEGATIVE); METHADONE SCREEN, URINE NEGATIVE (NEGATIVE); OPIATES SCREEN,URINE POSITIVE (NEGATIVE); PHENCYCLIDINE SCREEN,URINE NEGATIVE (NEGATIVE)
[2024-06-04 20:32] LABS: BILIRUBIN,URINE NEGATIVE (NEGATIVE); CLARITY,URINE CLEAR (CLEAR); COLOR,URINE YELLOW (YELLOW); GLUCOSE, URINE NEGATIVE (NEGATIVE); KETONES,URINE NEGATIVE (NEGATIVE); LEUKOCYTE ESTERASE ,URINE NEGATIVE (NEGATIVE); NITRITE,URINE NEGATIVE (NEGATIVE); PH,URINE 7 (5 - 7); PROTEIN,URINE DIPSTICK NEGATIVE (NEGATIVE); URINE UROBILINOGEN 0.2 mg/dL (0.2 - 1)
[2024-06-04 20:37] LABS: BACTERIA,URINE RARE /HPF; EPITHELIAL CELLS,URINE FEW /LPF; WBC,URINE (MAN) 0-5 /HPF (0-5)
[2024-06-04] MEDS: ATORVASTATIN 20 MG TAB PO SCH (20:52)
[2024-06-04] MEDS: METHYLPREDNISOLONE SOD SUCC 40 MG/ML VIAL 1ML IV SCH (20:53)
[2024-06-05] VITALS (11 sets, daily range): BP systolic 120–172; BP diastolic 57–96; PULSE 80–101; RESP 16–21; TEMP 97.3–98.7; O2SAT 94–98
[2024-06-05 02:03] LABS: TROPONIN I 0.054 ng/mL (0-0.300)
[2024-06-05 06:36] LABS: HEMATOCRIT 50.2 % (38.2-49.6); HEMOGLOBIN 16.1 g/dL (14.0-18.0); LYMPHOCYTES # (AUTO) 0.5 (1.0-3.2); LYMPHOCYTES % 6.8 % (18.0-39.1); MEAN CORPUSCULAR HEMOGLOBIN 28.2 pg (28-32); MEAN CORPUSCULAR HGB CONC 32.1 g/dL (31-35); MEAN CORPUSCULAR VOLUME 88.1 fL (81-99); MONOCYTES # (AUTO) 0.3 (0.2-0.8); MONOCYTES % 4.1 % (4.4-11.3); NEUTROPHILS # (AUTO) 6.8 (2.1-6.9); NEUTROPHILS % 88.7 % (38.7-80.0); PLATELET COUNT 244 x10e3/uL (140-360); RED CELL DISTRIBUTION WIDTH 15.1 % (11.7-14.4); WHITE BLOOD COUNT 7.64 x10e3/uL (4.8-10.8)
[2024-06-05 07:16] LABS: ALBUMIN 3.6 g/dL (3.5-5.0); ALBUMIN/GLOBULIN RATIO 1.1 (0.8-2.0); ANION GAP 17.2 mmol/L (8-16); BILIRUBIN,TOTAL 1.2 mg/dL (0.2-1.2); CALCIUM 9.4 mg/dL (8.4-10.2); CHOL/HDL RATIO 3.3 (3.9-4.7); CREATININE, SERUM 0.8 mg/dL (0.72-1.25); POTASSIUM 4.2 mmol/L (3.5-5.1); TOTAL PROTEIN 6.8 g/dL (6.5-8.1)
[2024-06-05] MEDS: BUPROPION HCL 150 MG TABCR PO SCH (08:36)
[2024-06-05] MEDS: THIAMINE HCL 100 MG TAB PO SCH (08:37)
[2024-06-05] MEDS: LORATADINE 10 MG TAB PO SCH (08:37)
[2024-06-05] MEDS: PANTOPRAZOLE SOD 40 MG TABEC PO SCH (08:37)
[2024-06-05] MEDS: ASPIRIN 81 MG ENTERIC COATED PO SCH (08:38)
[2024-06-05] MEDS: FOLIC ACID 1 MG TAB PO SCH (08:38)
[2024-06-05] MEDS ORDERED: NICOTINE 14 MG/EA PATCH TOP SCH (09:00)
[2024-06-06] VITALS (11 sets, daily range): BP systolic 114–137; BP diastolic 50–93; PULSE 79–108; RESP 17–20; TEMP 97.6–98.6; O2SAT 94–100
[2024-06-06] MEDS: PREDNISONE 20 MG TAB PO SCH (08:31)
[2024-06-07] VITALS (7 sets, daily range): BP systolic 99–117; BP diastolic 60–75; PULSE 79–92; RESP 18–20; TEMP 97.6–98.6; O2SAT 92–99
[2024-06-07 06:30] LABS: BASOPHILS % 0.1 % (0.0-1.0); EOSINOPHILS # (AUTO) 0.1 (0.0-0.4); EOSINOPHILS % 0.8 % (0.0-6.0); HEMOGLOBIN 15.6 g/dL (14.0-18.0); LYMPHOCYTES # (AUTO) 2.2 (1.0-3.2); MEAN CORPUSCULAR HEMOGLOBIN 28.8 pg (28-32); MEAN CORPUSCULAR HGB CONC 31.8 g/dL (31-35); MEAN CORPUSCULAR VOLUME 90.4 fL (81-99); MONOCYTES # (AUTO) 1.7 (0.2-0.8); MONOCYTES % 12.9 % (4.4-11.3); NEUTROPHILS % 68.9 % (38.7-80.0); PLATELET COUNT 194 x10e3/uL (140-360); RED BLOOD COUNT 5.42 x10e6/uL (4.3-5.7); RED CELL DISTRIBUTION WIDTH 15.6 % (11.7-14.4); WHITE BLOOD COUNT 13.11 x10e3/uL (4.8-10.8)
[2024-06-07 07:04] LABS: CREATININE, SERUM 0.94 mg/dL (0.72-1.25)
[2024-06-07] MEDS ORDERED: ONDANSETRON HCL 4 MG ORAL DISINTEGRATING TAB PO PRN (10:15)
[2024-06-09 15:36] LABS: ABG HCO3 31 mmol/L (22-26); ABG PCO2 58 mmHg (35-45); ABG PH 7.33 (7.35-7.45); ABG PO2 76 mmHg (80-105); ABG TCO2 32
== END 2024-06-07 10:00 | disposition home or self-care (01) | DRG 291 ==
LOC: ER 06:44 → ERHOLD 09:07 → MED/SURG3 09:52
PROVIDERS: ADMIT Internal Medicine; ATTEND Internal Medicine
PROC: 4A133R1 Monitoring of Arterial Saturation, Peripheral, Percutaneous Approach (ICD-10-PCS; principal; 2024-06-04)
PROC: HZ2ZZZZ Detoxification Services for Substance Abuse Treatment (ICD-10-PCS; 2024-06-04)
DX: I11.0 Hypertensive heart disease with heart failure (principal); I50.23 Acute on chronic systolic (congestive) heart failure; E87.4 Mixed disorder of acid-base balance; F10.231 Alcohol dependence with withdrawal delirium; J44.1 Chronic obstructive pulmonary disease with (acute) exacerbation; L03.115 Cellulitis of right lower limb; L03.116 Cellulitis of left lower limb; I42.6 Alcoholic cardiomyopathy; R09.02 Hypoxemia; R73.03 Prediabetes; E78.5 Hyperlipidemia, unspecified; I25.10 Atherosclerotic heart disease of native coronary artery without angina pectoris; G47.33 Obstructive sleep apnea (adult) (pediatric); Y90.6 Blood alcohol level of 120-199 mg/100 ml; E66.01 Morbid (severe) obesity due to excess calories; Z68.35 Body mass index [BMI] 35.0-35.9, adult; K21.9 Gastro-esophageal reflux disease without esophagitis; M54.9 Dorsalgia, unspecified; Z79.82 Long term (current) use of aspirin; Z88.0 Allergy status to penicillin; Z88.8 Allergy status to other drugs, medicaments and biological substances; F17.200 Nicotine dependence, unspecified, uncomplicated; Z11.52 Encounter for screening for COVID-19
CPT/HCPCS: 36415; 36600; 71045; 80048; 80053; 80061; 80307; 80320; 80329; 81001; 82550; 82805; 82948; 83735; 83880; 84484; 85025; 85610; 85730; 87040; 93005; 94760; 94799; 99284; J0696; J1940; J2060; J2919; J3411; J7040; J7512

== ENCOUNTER 2024-07-08 02:10 | Inpatient (IN) | payer MEDICARE ==
[2024-07-08] VITALS (18 sets, daily range): BP systolic 95–169; BP diastolic 60–82; PULSE 96–115; RESP 14–27; TEMP 98.6–99.1; O2SAT 94–100
[~2024-07-08] VITALS: Ht 180.3 cm; Wt 111.6 kg
[2024-07-08] MEDS ORDERED: NALOXONE HCL INJ 0.4 MG/ML AMP ONE (02:38)
[2024-07-08] MEDS: NALOXONE HCL INJ 0.4 MG/ML AMP IV ONE (02:45)
[2024-07-08] MEDS: IPRATROPIUM BROMIDE 0.02% 2.5 ML NEB NEB ONE (02:51)
[2024-07-08] MEDS: ALBUTEROL SULF 0.083% NEB SOLN 3 ML NEB NEB STA (02:55)
[2024-07-08] MEDS: METHYLPREDNISOLONE SOD SUCC 125 MG/2ML VIAL IV ONE (02:56)
[2024-07-08] MEDS ORDERED: CEFTRIAXONE 2 GM VIAL ONE (02:56)
[2024-07-08] MEDS ORDERED: SODIUM CHLORIDE 0.9% 100 ML ONE (02:56)
[2024-07-08] MEDS: CEFTRIAXONE 2 GM in SODIUM CHLORIDE 0.9% 100 ML IV STA (03:02)
[2024-07-08 03:09] LABS: BASOPHILS % 0.3 % (0.0-1.0); EOSINOPHILS # (AUTO) 0.1 (0.0-0.4); EOSINOPHILS % 0.8 % (0.0-6.0); HEMATOCRIT 43.9 % (38.2-49.6); HEMOGLOBIN 14.4 g/dL (14.0-18.0); LYMPHOCYTES # (AUTO) 1.4 (1.0-3.2); LYMPHOCYTES % 12.8 % (18.0-39.1); MEAN CORPUSCULAR HEMOGLOBIN 29.5 pg (28-32); MEAN CORPUSCULAR HGB CONC 32.8 g/dL (31-35); MONOCYTES # (AUTO) 1.3 (0.2-0.8); MONOCYTES % 12.2 % (4.4-11.3); NEUTROPHILS # (AUTO) 7.7 (2.1-6.9); NEUTROPHILS % 72.7 % (38.7-80.0); PLATELET COUNT 83 x10e3/uL (140-360); RED BLOOD COUNT 4.88 x10e6/uL (4.3-5.7); RED CELL DISTRIBUTION WIDTH 17.2 % (11.7-14.4); WHITE BLOOD COUNT 10.59 x10e3/uL (4.8-10.8)
[2024-07-08 04:02] LABS: INFLUENZA A AG NEGATIVE (NEGATIVE)
[2024-07-08 04:03] LABS: CORONAVIRUS COVID-19 AG NEGATIVE (NEGATIVE); INFLUENZA B AG NEGATIVE (NEGATIVE)
[2024-07-08 04:07] LABS: ALBUMIN 3.4 g/dL (3.5-5.0); ALBUMIN/GLOBULIN RATIO 1.1 (0.8-2.0); BILIRUBIN,TOTAL 0.8 mg/dL (0.2-1.2); CALCIUM 8.2 mg/dL (8.4-10.2); CREATININE, SERUM 0.82 mg/dL (0.72-1.25); TOTAL PROTEIN 6.5 g/dL (6.5-8.1)
[2024-07-08 04:19] LABS: TROPONIN I 0.156 ng/mL (0-0.300)
[2024-07-08] MEDS: NICOTINE 14 MG/EA PATCH TOP SCH (04:32)
[2024-07-08 04:47] LABS: ETHANOL 203.8 mg/dL (0.0-10.0)
[2024-07-08] MEDS: FUROSEMIDE INJ 10 MG/ML 4 ML VIAL IV SCH (05:18)
[2024-07-08] MEDS: METHYLPREDNISOLONE SOD SUCC 40 MG/ML VIAL 1ML IV SCH ×2 (05:18→20:22)
[2024-07-08 05:31] LABS: OPIATES SCREEN,URINE POSITIVE (NEGATIVE)
[2024-07-08 05:32] LABS: AMPHETAMINES SCREEN,URINE NEGATIVE (NEGATIVE); BENZODIAZEPINES SCREEN,URINE NEGATIVE (NEGATIVE); CANNABINOIDS SCREEN,URINE NEGATIVE (NEGATIVE); COCAINE SCREEN,URINE NEGATIVE (NEGATIVE); METHADONE SCREEN, URINE NEGATIVE (NEGATIVE); PHENCYCLIDINE SCREEN,URINE NEGATIVE (NEGATIVE)
[2024-07-08] MEDS: ALBUTEROL/IPRATROPIUM 3 ML NEB NEB SCH (07:39)
[2024-07-08] MEDS: ASPIRIN 81 MG ENTERIC COATED PO SCH (09:13)
[2024-07-08] MEDS: PANTOPRAZOLE SOD 40 MG TABEC PO SCH (09:13)
[2024-07-08] MEDS: CARVEDILOL 12.5 MG TAB PO SCH (09:13)
[2024-07-08] MEDS: CHLORDIAZEPOXIDE HCL 25 MG CAP PO PRN ×2 (09:16→15:23)
[2024-07-08] MEDS: Doxycycline IV 100 MG in SODIUM CHLORIDE 0.9% 100 ML IV SCH (10:00)
[2024-07-08 14:39] LABS: TROPONIN I 0.105 ng/mL (0-0.300)
[2024-07-08] MEDS: BENZONATATE 100 MG CAP PO SCH (15:23)
[2024-07-08] MEDS: ATORVASTATIN 20 MG TAB PO SCH (20:22)
[2024-07-09] VITALS (21 sets, daily range): BP systolic 150–208; BP diastolic 71–121; PULSE 84–113; RESP 13–22; TEMP 98.2–99.1; O2SAT 95–100
[2024-07-09] MEDS: FOLIC ACID 1 MG TAB PO SCH (07:58)
[2024-07-09] MEDS: BUPROPION HCL 150 MG TABCR PO SCH (07:59)
[2024-07-09] MEDS: THIAMINE HCL 100 MG TAB PO SCH (08:06)
[2024-07-09] MEDS: NICOTINE 21 MG/EA PATCH TOP SCH (08:06)
[2024-07-09] MEDS: LORATADINE 10 MG TAB PO SCH (08:08)
[2024-07-09 08:19] LABS: BASOPHILS % 0.1 % (0.0-1.0); HEMATOCRIT 50.1 % (38.2-49.6); HEMOGLOBIN 16.3 g/dL (14.0-18.0); LYMPHOCYTES # (AUTO) 0.6 (1.0-3.2); LYMPHOCYTES % 6.1 % (18.0-39.1); MEAN CORPUSCULAR HEMOGLOBIN 29.5 pg (28-32); MEAN CORPUSCULAR HGB CONC 32.5 g/dL (31-35); MEAN CORPUSCULAR VOLUME 90.8 fL (81-99); MONOCYTES # (AUTO) 1.1 (0.2-0.8); MONOCYTES % 11.1 % (4.4-11.3); NEUTROPHILS # (AUTO) 8.4 (2.1-6.9); NEUTROPHILS % 82.2 % (38.7-80.0); PLATELET COUNT 108 x10e3/uL (140-360); RED BLOOD COUNT 5.52 x10e6/uL (4.3-5.7); RED CELL DISTRIBUTION WIDTH 17.2 % (11.7-14.4); WHITE BLOOD COUNT 10.25 x10e3/uL (4.8-10.8)
[2024-07-09 08:43] LABS: ALBUMIN 3.9 g/dL (3.5-5.0); ALBUMIN/GLOBULIN RATIO 1.1 (0.8-2.0); ANION GAP 16.2 mmol/L (8-16); BILIRUBIN,TOTAL 1.3 mg/dL (0.2-1.2); CALCIUM 9.7 mg/dL (8.4-10.2); CREATININE, SERUM 0.83 mg/dL (0.72-1.25); TOTAL PROTEIN 7.4 g/dL (6.5-8.1)
[2024-07-09 08:46] LABS: POTASSIUM 5.2 mmol/L (3.5-5.1)
[2024-07-09] MEDS: ACETAMINOPHEN/CODEINE 300MG - 30MG TAB PO PRN (09:02)
[2024-07-09 09:21] LABS: MAGNESIUM 1.8 MG/DL (1.3-2.1); PHOSPHORUS 2.3 MG/DL (2.3-4.7)
[2024-07-09 10:18] LABS: TROPONIN I 0.141 ng/mL (0-0.300)
[2024-07-09] MEDS: CHLORDIAZEPOXIDE HCL 25 MG CAP PO SCH (13:02)
[2024-07-09] MEDS: ALBUTEROL/IPRATROPIUM 3 ML NEB NEB PRN (13:44)
[2024-07-09] MEDS: CARVEDILOL 12.5 MG TAB PO SCH (18:11)
[2024-07-10] VITALS (10 sets, daily range): BP systolic 113–161; BP diastolic 61–78; PULSE 77–94; RESP 16–22; TEMP 96.1–98; O2SAT 94–100
[2024-07-10] MEDS: PREDNISONE 10 MG TAB PO SCH (10:23)
[2024-07-10] MEDS: SODIUM CHLORIDE 0.9% 250ML 250 ML ONE (11:25)
[2024-07-11] VITALS (9 sets, daily range): BP systolic 122–154; BP diastolic 60–79; PULSE 80–93; RESP 17–20; TEMP 97.6–98.1; O2SAT 93–98
[2024-07-11 07:01] LABS: BASOPHILS % 0.1 % (0.0-1.0); EOSINOPHILS # (AUTO) 0.1 (0.0-0.4); EOSINOPHILS % 1.1 % (0.0-6.0); HEMATOCRIT 49.3 % (38.2-49.6); HEMOGLOBIN 16.1 g/dL (14.0-18.0); LYMPHOCYTES # (AUTO) 1.8 (1.0-3.2); LYMPHOCYTES % 20.1 % (18.0-39.1); MEAN CORPUSCULAR HEMOGLOBIN 29.4 pg (28-32); MEAN CORPUSCULAR HGB CONC 32.7 g/dL (31-35); MONOCYTES # (AUTO) 1.3 (0.2-0.8); MONOCYTES % 14.4 % (4.4-11.3); NEUTROPHILS # (AUTO) 5.8 (2.1-6.9); NEUTROPHILS % 63.8 % (38.7-80.0); RED BLOOD COUNT 5.48 x10e6/uL (4.3-5.7); RED CELL DISTRIBUTION WIDTH 17.3 % (11.7-14.4); WHITE BLOOD COUNT 9.14 x10e3/uL (4.8-10.8)
[2024-07-11 07:07] LABS: PLATELET COUNT 98 x10e3/uL (140-360)
[2024-07-11 07:34] LABS: ANION GAP 14.8 mmol/L (8-16); CALCIUM 9.1 mg/dL (8.4-10.2); CREATININE, SERUM 0.76 mg/dL (0.72-1.25); POTASSIUM 3.8 mmol/L (3.5-5.1)
[2024-07-12] VITALS (10 sets, daily range): BP systolic 116–152; BP diastolic 60–78; PULSE 80–94; RESP 18–20; TEMP 97.5–98.8; O2SAT 93–98
[2024-07-12 09:53] LABS: BASOPHILS % 0.4 % (0.0-1.0); EOSINOPHILS # (AUTO) 0.2 (0.0-0.4); EOSINOPHILS % 1.8 % (0.0-6.0); HEMATOCRIT 48.1 % (38.2-49.6); HEMOGLOBIN 15.9 g/dL (14.0-18.0); LYMPHOCYTES # (AUTO) 2.3 (1.0-3.2); LYMPHOCYTES % 27.3 % (18.0-39.1); MEAN CORPUSCULAR HEMOGLOBIN 29.8 pg (28-32); MEAN CORPUSCULAR HGB CONC 33.1 g/dL (31-35); MEAN CORPUSCULAR VOLUME 90.2 fL (81-99); MONOCYTES # (AUTO) 1.3 (0.2-0.8); MONOCYTES % 16.2 % (4.4-11.3); NEUTROPHILS # (AUTO) 4.4 (2.1-6.9); NEUTROPHILS % 53.5 % (38.7-80.0); PLATELET COUNT 108 x10e3/uL (140-360); RED BLOOD COUNT 5.33 x10e6/uL (4.3-5.7); RED CELL DISTRIBUTION WIDTH 17.8 % (11.7-14.4); WHITE BLOOD COUNT 8.27 x10e3/uL (4.8-10.8)
[2024-07-12 10:17] LABS: ANION GAP 15.8 mmol/L (8-16); CALCIUM 8.7 mg/dL (8.4-10.2); CREATININE, SERUM 0.75 mg/dL (0.72-1.25); MAGNESIUM 1.6 MG/DL (1.3-2.1); PHOSPHORUS 4.1 MG/DL (2.3-4.7); POTASSIUM 3.8 mmol/L (3.5-5.1)
[2024-07-13] VITALS (9 sets, daily range): BP systolic 110–153; BP diastolic 55–75; PULSE 80–91; RESP 18–20; TEMP 97.4–98.6; O2SAT 90–99
[2024-07-13 07:32] LABS: BASOPHILS % 0.2 % (0.0-1.0); EOSINOPHILS # (AUTO) 0.1 (0.0-0.4); EOSINOPHILS % 1.3 % (0.0-6.0); HEMATOCRIT 48.7 % (38.2-49.6); HEMOGLOBIN 15.6 g/dL (14.0-18.0); LYMPHOCYTES # (AUTO) 2.1 (1.0-3.2); LYMPHOCYTES % 25.3 % (18.0-39.1); MEAN CORPUSCULAR HEMOGLOBIN 29.6 pg (28-32); MEAN CORPUSCULAR VOLUME 92.4 fL (81-99); MONOCYTES # (AUTO) 1.5 (0.2-0.8); MONOCYTES % 17.7 % (4.4-11.3); NEUTROPHILS # (AUTO) 4.6 (2.1-6.9); NEUTROPHILS % 54.5 % (38.7-80.0); PLATELET COUNT 112 x10e3/uL (140-360); RED BLOOD COUNT 5.27 x10e6/uL (4.3-5.7); RED CELL DISTRIBUTION WIDTH 17.6 % (11.7-14.4); WHITE BLOOD COUNT 8.41 x10e3/uL (4.8-10.8)
[2024-07-13 07:56] LABS: ANION GAP 14.7 mmol/L (8-16); CALCIUM 8.6 mg/dL (8.4-10.2); CREATININE, SERUM 0.75 mg/dL (0.72-1.25); POTASSIUM 3.7 mmol/L (3.5-5.1)
[2024-07-13] MEDS: PREDNISONE 10 MG TAB PO SCH (08:03)
[2024-07-13 08:34] LABS: MAGNESIUM 1.7 MG/DL (1.3-2.1); PHOSPHORUS 3.8 MG/DL (2.3-4.7)
== END 2024-07-13 15:40 | disposition home or self-care (01) | DRG 291 ==
LOC: ER 02:25 → ERHOLD 04:29 → ICU 04:50 → MED/SURG3 07-09 23:08
PROVIDERS: ADMIT Internal Medicine; ATTEND Internal Medicine
PROC: HZ2ZZZZ Detoxification Services for Substance Abuse Treatment (ICD-10-PCS; principal; 2024-07-10)
DX: I11.0 Hypertensive heart disease with heart failure (principal); I50.23 Acute on chronic systolic (congestive) heart failure; J96.21 Acute and chronic respiratory failure with hypoxia; J44.1 Chronic obstructive pulmonary disease with (acute) exacerbation; L03.115 Cellulitis of right lower limb; L03.116 Cellulitis of left lower limb; F10.239 Alcohol dependence with withdrawal, unspecified; J44.0 Chronic obstructive pulmonary disease with (acute) lower respiratory infection; L97.528 Non-pressure chronic ulcer of other part of left foot with other specified severity; L97.518 Non-pressure chronic ulcer of other part of right foot with other specified severity; Z99.81 Dependence on supplemental oxygen; F10.229 Alcohol dependence with intoxication, unspecified; I42.6 Alcoholic cardiomyopathy; R73.03 Prediabetes; E78.5 Hyperlipidemia, unspecified; G47.33 Obstructive sleep apnea (adult) (pediatric); K21.9 Gastro-esophageal reflux disease without esophagitis; I73.9 Peripheral vascular disease, unspecified; F41.9 Anxiety disorder, unspecified; F32.9 Major depressive disorder, single episode, unspecified; M54.50 Low back pain, unspecified; Z11.52 Encounter for screening for COVID-19; E66.01 Morbid (severe) obesity due to excess calories; Z68.34 Body mass index [BMI] 34.0-34.9, adult; Z88.0 Allergy status to penicillin; Z88.8 Allergy status to other drugs, medicaments and biological substances; F17.200 Nicotine dependence, unspecified, uncomplicated; Z79.82 Long term (current) use of aspirin
CPT/HCPCS: 36415; 71045; 80048; 80053; 80307; 80320; 82550; 82948; 83036; 83605; 83690; 83735; 83880; 84100; 84484; 85025; 87040; 93005; 93306; 94640; 94660; 94799; 99252; 99285; J0696; J1940; J2310; J2470; J2919; J3411; J7050; J7512